=== PATIENT | male | born 1950 | race Caucasian/White ===

== ENCOUNTER 2022-07-07 21:57 | Emergency (ER) | payer MEDICARE, BC ==
[2022-07-07] MEDS: EPINEPHrine 1:10,000 1 MG/10 ML Syringe IVPUSH ONE ×5 (22:06→22:18)
[2022-07-07] MEDS: Sodium Bicarbonate 8.4% 50 MEQ/50 ML Syringe IVPUSH ONE (22:07)
[2022-07-07] MEDS: Sodium Chloride 0.9% 1,000 ML IV ONE (22:08)
[2022-07-07] MEDS: Magnesium Sulfate/Water 4 GM in Premix Bag 1 BAG IV ONE (22:12)
[2022-07-07] MEDS ORDERED: Sodium Chloride 0.9% 10 ML Syringe FLUSH PRN (22:29)
[2022-07-07 22:45] LABS: ANION GAP 18.2 mmol/L (5-15); CHLORIDE,CL 103 mmol/L (98-107); ESTIMATED GFR 55 mL/min (>=60); SODIUM,NA 142 mmol/L (136-145)
[2022-07-08] MEDS: EPINEPHrine 1 MG/ML 30 ML MDV IVPUSH ONE (00:05)
== END 2022-07-07 22:24 | disposition expired ==
LOC: KA.ED 21:57
DX: I46.9 Cardiac arrest, cause unspecified (principal)
CPT/HCPCS: 80053; 84484; 85025; 85610; 92950; 96374; 96375; 99285; J0171; J3475; J7030